=== PATIENT | female | born 1955 | race African-American/Black ===

== ENCOUNTER 2016-06-01 06:15 | Inpatient (IN) | payer OTHER ==
--- NOTE | 2016-06-01 06:28 | PDOC ---
History of Present Illness <Olga Bermudez - Last Filed: 06/01/16 08:52> - General History Source: Patient Exam Limitations: No Limitations - History of Present Illness Initial Comments: 06/01/16 06:29 The patient is a 60-year-old female, with no significant past medical history, who presents to the emergency department with intermittent "dizziness" for the past week. She describes the dizziness as "a feeling of lightheadedness, like she might pass out." She states that she had one or 2 episodes of this dizziness last week. The episodes were acute onset, gradual offset, lasting approximately 10-15 minutes. There were no accompanying symptoms. Yesterday she had another, similar, single episode. She awoke this morning approximately one hour ago, with this same "dizziness." She reports near loss of consciousness this morning, but denies actual loss of consciousness. She denies dyspnea, dyspnea on exertion, chest pain, back pain. She denies palpitations. She denies alcohol use, recreational drug use. The patient denies recent travel/surgeries/immobility, lower extremity edema, calf pain or tenderness, tobacco use, hormone use, personal or family history of thrombosis. She denies fever, chills, sweats. She denies any previous history of arrhythmia. She denies any history of thyroid disease. She denies recent heat intolerance, inadvertent weight loss, hair loss, hyperdefecation. 06/01/16 06:53 06/01/16 06:59 <Ariel Miranda - Last Filed: 06/01/16 10:02> - General Stated Complaint: LIGHTHEADED Time Seen by Provider: 06/01/16 06:28 Past History <Olga Bermudez - Last Filed: 06/01/16 08:52> - Psycho/Social/Smoking Cessation Hx Anxiety: No Suicidal Ideation: No Smoking History: Never smoked <Ariel Miranda - Last Filed: 06/01/16 10:02> - Past Medical History Allergies/Adverse Reactions: Allergies Allergy/AdvReac Type Severity Reaction Status Date / Time Iodinated Contrast Media - Allergy Verified 06/01/16 06:34 Oral and iodine Allergy Verified 11/02/14 07:22 Home Medications: Ambulatory Orders NK [No Known Home Medication] 11/02/14 Review of Systems - Review of Systems Comments:: 06/01/16 06:55 CONSTITUTIONAL: Absent: fever, chills, diaphoresis, generalized weakness, malaise, loss of appetite HEENT: Absent: rhinorrhea, nasal congestion, throat pain, throat swelling, difficulty swallowing, mouth swelling, ear pain, eye pain, visual Changes CARDIOVASCULAR: Absent: chest pain, loss of consciousness, palpitations, irregular heart rate, peripheral edema RESPIRATORY: Absent: cough, shortness of breath, dyspnea with exertion, orthopnea, wheezing, stridor, hemoptysis GASTROINTESTINAL: Absent: abdominal pain, abdominal distension, nausea, vomiting, diarrhea, constipation, melena, hematochezia GENITOURINARY: Absent: dysuria, frequency, urgency, hesitancy, hematuria, flank pain, genital pain MUSCULOSKELETAL: Absent: myalgia, arthralgia, joint swelling SKIN: Absent: rash, itching, pallor HEMATOLOGIC/IMMUNOLOGIC: Absent: easy bleeding, easy bruising, lymphadenopathy, frequent infections ENDOCRINE: Absent: unexplained weight gain, unexplained weight loss, heat intolerance, cold intolerance NEUROLOGIC: Present: See history of present illness Absent: headache, focal weakness or paresthesias, unsteady gait, seizure, mental status changes, bladder or bowel incontinence PSYCHIATRIC: Absent: anxiety, depression, suicidal or homicidal ideation, hallucinations. <Ariel Miranda - Last Filed: 06/01/16 10:02> *Physical Exam - Vital Signs Last Vital Signs Temp Pulse Resp BP Pulse Ox 98.5 F 117 H 18 124/104 100 06/01/16 06:35 06/01/16 07:12 06/01/16 06:35 06/01/16 07:12 06/01/16 06:35 <Olga Bermudez - Last Filed: 06/01/16 08:52> Heart Score/ECG Review - ECG Intrepretation Comment:: 06/01/16 06:42 Indeterminant rhythm at approximately 140 bpm, normal axis, normal intervals, no ST changes The complexes are narrow. The heart are interval is variable. There are frequent T waves. The MN interval is fixed. There are occasional possible flutter waves present in some leads 06/01/16 06:51 <Ariel Miranda - Last Filed: 06/01/16 10:02> ED Treatment Course - LABORATORY CBC & Chemistry Diagram: 06/01/16 06:47 06/01/16 06:47 - ADDITIONAL ORDERS Additional order review: Laboratory Results 06/01/16 06/01/16 06:47 06:47 INR 1.24 H PTT (Actin FS) 33.0 Sodium 134 L Potassium 4.3 Chloride 99 Carbon Dioxide 24 Anion Gap 11 BUN 19 H Creatinine 1.0 Creat Clearance w eGFR 56.18 Random Glucose 72 L Calcium 9.4 Magnesium 2.0 Total Bilirubin 0.4 AST 19 ALT 21 Alkaline Phosphatase 73 Creatine Kinase 117 Troponin I < 0.02 Total Protein 9.6 H Albumin 3.9 TSH 6.74 H Free T4 1.17 06/01/16 06:47 RBC 4.72 MCV 77.4 L MCHC 32.6 RDW 14.0 MPV 9.0 Neutrophils % 41.6 L Lymphocytes % 37.5 Monocytes % 16.3 H Eosinophils % 3.7 Basophils % 0.9 - RADIOLOGY Radiograph Interpretation: 06/01/16 08:52 Chest XR Portable Reviewed by: Dr. Ariel Miranda Interpreted by: Dr. Ariel Costa IMPRESSION: No acute pathology. No significant changes since 11/02/2014. - Medications Given in the ED: ED Medications Discontinued Medications Generic Name Dose Route Start Last Admin Trade Name Freq PRN Reason Stop Dose Admin Aspirin 162 mg 06/01/16 06:40 06/01/16 07:01 Asa - PO 06/01/16 06:41 162 mg ONCE ONE Administration Diltiazem HCl 20 mg 06/01/16 06:40 06/01/16 06:57 Cardizem Injection - IVPUSH 06/01/16 06:41 20 mg ONCE ONE Administration Sodium Chloride 1,000 mls @ 1,000 mls/hr 06/01/16 06:40 06/01/16 06:55 Normal Saline - IV 06/01/16 07:39 1,000 mls/hr ASDIR STA Administration <Olga Bermudez - Last Filed: 06/01/16 08:52> - LABORATORY CBC & Chemistry Diagram: 06/01/16 06:47 06/01/16 06:47 <Ariel Miranda - Last Filed: 06/01/16 10:02> Medical Decision Making - Critical Care Time Total Critical Care Time (minutes): 45 Critical Care Statement: The care of this patient involved high complexity decision making to prevent further life threatening deterioration of the patient 's condition and/or to evalute & treat vital organ system(s) failure or risk of failure. - Medical Decision Making 06/01/16 06:52 The patient is well-appearing and in no acute distress She is tachycardic, in the 160s to 180s overall She has periods of sinus tachycardia as well a periods of a narrow complex, regular tachycardia, of indeterminant and rhythm I suspect possible intermittent atrial flutter with fixed block versus intermittent atrial tachycardia Blood pressure is within normal limits Will administer IV diltiazem while running a rhythm strip, to better disclose the underlying rhythm 06/01/16 06:59 After receiving 20 mg of IV Cardizem, she remains tachycardic, with a similar rhythm Heart rate is now averaging in the 120s, significantly improved from presentation where it was averaging in the 160s to 180s Repeat EKG: There are periods of sinus tachycardia, with interspersed periods of a narrow complex tachycardia, which is regular, but of undetermined rhythm I continue to suspect intermittent atrial flutter with fixed block, versus intermittent atrial tachycardia 06/01/16 07:02 Heart rate now in the low 110s Will begin Cardizem drip Will administer IV fluids, normal saline, 1 L bolus 06/01/16 07:26 Heart rate now in 90s to low 100s Chest x-ray emergency Department interpretation: No acute cardiopulmonary disease Labs pending 06/01/16 07:43 Heart rate is ranging from 90-160 Will increase Cardizem to 7.5 mg per hour 06/01/16 07:58 Rhythm on the monitor seems to be variable: There are periods consistent with sinus tachycardia, where I see clear P waves with a fixed MN interval and a fixed RR intervals There are also periods of narrow complex, regularly tachycardia Occasionally, during these periods, there are possible flutter waves seen Given the new onset tachycardia of unclear etiology, pulmonary embolism is in the differential diagnosis She is low risk for pulmonary embolism based on a Wells score of 1.5 Will obtain d-dimer Clinical impression: Narrow complex tachycardia of unclear etiology Suspected intermittent atrial flutter Possible hypothyroidism Case discussed in detail with admitting provider including history, physical exam and ancillary studies. Admitting physician has assumed care for the patient, will follow all pending diagnostics and will complete the evaluation and treatment. A portion of this note was documented by scribe services under my direction. I have reviewed the details of the note, within reason, and agree with the documentation with the following case summary and management plan written by me. 06/01/16 08:00 06/01/16 08:24 06/01/16 09:43 D-dimer noted, less than 200 Even her low pretest probability, I feel that a diagnosis of pulmonary embolism would be extremely unlikely Normal free T4 noted Her TSH abnormality could potentially be secondary to sick euthyroid syndrome secondary to the systemic stress of her tachyarrhythmia 06/01/16 09:44 06/01/16 10:01 <Ariel Miranda - Last Filed: 06/01/16 10:02> *DC/Admit/Observation/Transfer <Olga Bermudez - Last Filed: 06/01/16 08:52> - Discharge Dispostion Admit: Yes <Ariel Miranda - Last Filed: 06/01/16 10:02> Diagnosis at time of Disposition: Tachycardia
[2016-06-01 06:36] VITALS: TEMP 98.5; BMI 22.2
[2016-06-01] MEDS ORDERED: SODIUM CHLORIDE 1,000 ML IV STA (06:40)
[2016-06-01] MEDS ORDERED: ASPIRIN 81 MG CHEWABLE TABLETS PO ONE (06:40)
[2016-06-01] MEDS ORDERED: dilTIAZem HCL 50 MG/10 ML - 10 ML VIAL IVPUSH ONE (06:40)
[2016-06-01] MEDS ORDERED: dilTIAZem HCL 125 MG/25 ML - 25 ML VIAL ONE (06:47)
[2016-06-01] MEDS ORDERED: ASPIRIN 81 MG CHEWABLE TABLETS ONE (06:58)
[2016-06-01] MEDS ORDERED: dilTIAZem HCL 50 MG/10 ML - 10 ML VIAL ONE (07:06)
[2016-06-01] MEDS ORDERED: DILTIAZEM INJECTION 125 MG in DEXTROSE 5%-WATER - 100 ML IVPB SCH (07:15)
[2016-06-01 07:16] LABS: BASOPHIL 0.9 % (0-2.0); EOSINOPHIL 3.7 % (0-4.5); MCH 25.2 pg (25.7-33.7); MCHC 32.6 g/dl (32.0-36.0); MEAN CELL VOLUME 77.4 fl (80-96); NEUTROPHILS 41.6 % (42.8-82.8); PLATELET COUNT 348 K/MM3 (134-434); WHITE BLOOD COUNT 5.9 K/mm3 (4.0-10.0)
[2016-06-01 07:31] LABS: INR 1.24 (0.82-1.09); PROTHROMBIN TIME (PATIENT) 13.7 SEC (9.98-11.88)
[2016-06-01 07:41] LABS: ALBUMIN 3.9 g/dl (3.4-5.0); ANION GAP 11 (8-16); BILIRUBIN,TOTAL 0.4 mg/dL (0.2-1.0); CALCIUM 9.4 mg/dL (8.5-10.1); CO2 24 mmol/L (21-32); GLUCOSE,RANDOM 72 mg/dL (74-106); SGOT/AST 19 U/L (15-37); SGPT/ALT 21 U/L (12-78); TOT PROT 9.6 g/dl (6.4-8.2)
[2016-06-01 07:50] LABS: ALK PHOS 73 U/L (45-117); THYROID STIMULATING HORMONE 6.74 uIU/ml (0.358-3.74); TROPONIN I < 0.02 ng/ml (0.00-0.05)
[2016-06-01] MEDS ORDERED: HEPARIN NA (PORCINE) 5,000 UNITS/ML 1ML VIAL IVPUSH PRN ×2 (08:40)
[2016-06-01] MEDS ORDERED: HEPARIN - 25,000 UNIT in SODIUM CHLORIDE 495 ML IV SCH (08:45)
[2016-06-01 08:48] LABS: FREE T4 1.17 ng/dl (0.76-1.46)
--- NOTE | 2016-06-01 08:54 | PN ---
Teaching Attending Note Name of Resident: Ivet Mahoney ATTENDING PHYSICIAN STATEMENT I saw and evaluated the patient. I reviewed the resident's note and discussed the case with the resident. I agree with the resident's findings and plan as documented. CC: light headedness SUBJECTIVE: 60 y/o nice lady with no significant PMH and no medical follow up due to lack of insurance. She presented this am with light headedness and near syncope. around 5 am , she woke up, felt light headed while standing , did not have LOC , but lowered her self to the floor , and episode of LH resolved in < 1 min. yesterday she had a similar episode, and one more one week ago while eating . no warning signs but feels weird sensation in her nose during that time. denies any SOB, palpitations, sweating, CP with previous episodes. This am in ER she developed intermittent palpitations . denies recent travel, hospitalizations, or immobilization. denies Dysuria, cough , diarrhea or Abd pain . NO fever or chills . denies any h/o GI bleed OBJECTIVE: VS reviewed. NAD , very pleasant , AAOx3 HEENT: MMM, no facial droop, tongue at mid line , EOMI, round equal pupils reactive to light . Thyroid not enlarged, and nodules felt CV: RRR, no MRG . no JVD, no carotid bruits. Lungs : CTAB Abd :Soft, NT, ND , NL BS Ext : no edema , no erythema or tremor skin no rash NEuro : no facial droop, tongue at mid line , EOMI, round equal pupils reactive to light , nl facial sensation . NL sensatio to light touch all over . strength 5/5 in upper and lower ext proximally and distally ASSESSMENT AND PLAN: 60 y/o nice lady with no significant PMH and no medical follow up due to lack of insurance. She presented this am with light headedness and near syncope. SHe was found to have tachycarrhythmias in ER and was placed on cardizem gtt. 1- Tachycardia: EKG and strips reviewed. alternating sinus rhythm with SVT . no ST or T wave changes. No signs of infection , no evidence of hyperthyroidism. no risk factors for PE . ACS is unlikely - check echo - repeat trop x1 - continue cardisem gtt . - will introduce po short acting cardizem , to help taper gtt off - Cardiac c/s. case d/w Dr. Elias, help appreciated - tele monitoring and cardiac c/s - PE is unlikely, clinical suspicion is low. WELLS score 1.5. D dimer was ordered in ER, if Neg then no further work up 2- elevated TSH. no enlargement in thyroid gland. follow FT3, FT4. might be subclinical hypothyroidism 3- Dispo : HLOC
[2016-06-01] MEDS ORDERED: HEPARIN INFUSION - 500 ML IVPB ONE (09:00)
--- NOTE | 2016-06-01 09:45 | EKG ---
Test Reason : Blood Pressure : / mmHG Vent. Rate : 143 BPM Atrial Rate : 170 BPM P-R Int : 000 ms QRS Dur : 072 ms QT Int : 270 ms P-R-T Axes : 047 001 033 degrees QTc Int : 416 ms SUPRAVENTRICULAR TACHYCARDIA with SINUS TACHYCARDIA WITH FUSION COMPLEXES NONSPECIFIC ST AND T WAVE ABNORMALITY ABNORMAL ECG NO PREVIOUS ECGS AVAILABLE Confirmed by LISA QUIGLEY MD ([id number]) on 06/01/2016 9:44:25 AM Referred By: Confirmed By:LISA QUIGLEY MD
--- NOTE | 2016-06-01 09:46 | EKG ---
Test Reason : Blood Pressure : / mmHG Vent. Rate : 122 BPM Atrial Rate : 122 BPM P-R Int : 132 ms QRS Dur : 082 ms QT Int : 344 ms P-R-T Axes : 068 001 052 degrees QTc Int : 490 ms SINUS TACHYCARDIA PREMATURE ATRIAL COMPLEXES POSSIBLE LEFT ATRIAL ENLARGEMENT BORDERLINE ECG Confirmed by LISA QUIGLEY MD ([id number]) on 06/01/2016 9:45:41 AM Referred By: Confirmed By:LISA QUIGLEY MD
--- NOTE | 2016-06-01 09:49 | EKG ---
Test Reason : Blood Pressure : / mmHG Vent. Rate : 144 BPM Atrial Rate : 119 BPM P-R Int : 136 ms QRS Dur : 082 ms QT Int : 346 ms P-R-T Axes : 067 008 045 degrees QTc Int : 535 ms SINUS TACHYCARDIA with intermittent SVT as well POSSIBLE LEFT ATRIAL ENLARGEMENT ABNORMAL ECG Confirmed by LISA QUIGLEY MD ([id number]) on 06/01/2016 9:48:47 AM Referred By: Confirmed By:LISA QUIGLEY MD
[2016-06-01 10:15] LABS: URINE MARIJUANA THC NEGATIVE ng/ml (CUTOFF=50)
--- NOTE | 2016-06-01 10:26 | CON.CARD ---
Cardiology Consult (text) - Consultation Consultation Note: cc: lightheadedness hpi: 60 f no sig pmhx here with lightheadedness. Pt has no hx hrt dz, chf, cad , cva/tia, htn, dm. Past few days she has had several episodes of LH. Occurs with sitting or standing. Today she got up to look at snow though window and began to feel LH. She laid back down until it passed and decided to come to ER due to recurrence of this symptom a few times over past week. LH is mild, sensation of about to faint, brief, and not associated with other sxs, not worsened by position. No cp, sob, palps, loc, pnd, orthopnea, le edema. In ER found to have intermittent episodes of svt and started on dilt gtt. pmh: per hpi psh: social: no tob, drugs fam: no hx hrt dz or scd ros: per hpi; no cough, fever, nvd, riggs, vision changes, wt loss, muscle pain, rash, nasal congestion, hematuria, gib meds: none taken pe: Vital Signs Period Temp Pulse Resp BP Sys/Bhakta Pulse Ox Last 24 Hr 98.5 F 112-117 18-18 115-127/61-104 100-100 nad no jvd irreg, tachy, s1s2 no mrg cta bl nl eff aaox3 no le e/c/c abd nt nd pos bs pos pt dp no carotid bruit no jaundice diaphoresis Laboratory Last Values WBC 5.9 K/mm3 (4.0-10.0) 06/01/16 06:47 RBC 4.72 M/mm3 (3.60-5.2) 06/01/16 06:47 Hgb 11.9 GM/dL (10.7-15.3) 06/01/16 06:47 Hct 36.5 % (32.4-45.2) 06/01/16 06:47 MCV 77.4 fl (80-96) L 06/01/16 06:47 MCHC 32.6 g/dl (32.0-36.0) 06/01/16 06:47 RDW 14.0 % (11.6-15.6) 06/01/16 06:47 Plt Count 348 K/MM3 (134-434) 06/01/16 06:47 MPV 9.0 fl (7.5-11.1) 06/01/16 06:47 Neutrophils % 41.6 % (42.8-82.8) L 06/01/16 06:47 Lymphocytes % 37.5 % (8-40) 06/01/16 06:47 Monocytes % 16.3 % (3.8-10.2) H 06/01/16 06:47 Eosinophils % 3.7 % (0-4.5) 06/01/16 06:47 Basophils % 0.9 % (0-2.0) 06/01/16 06:47 INR 1.24 (0.82-1.09) H 06/01/16 06:47 PTT (Actin FS) 33.0 SECONDS (26.9-34.4) 06/01/16 06:47 D-Dimer < 200 ng/ml (<200-235) 06/01/16 07:58 Sodium 134 mmol/L (136-145) L 06/01/16 06:47 Potassium 4.3 mmol/L (3.5-5.1) 06/01/16 06:47 Chloride 99 mmol/L (98-107) 06/01/16 06:47 Carbon Dioxide 24 mmol/L (21-32) 06/01/16 06:47 Anion Gap 11 (8-16) 06/01/16 06:47 BUN 19 mg/dL (7-18) H 06/01/16 06:47 Creatinine 1.0 mg/dL (0.55-1.02) 06/01/16 06:47 Creat Clearance w eGFR 56.18 (>60) 06/01/16 06:47 Random Glucose 72 mg/dL (74-106) L 06/01/16 06:47 Calcium 9.4 mg/dL (8.5-10.1) 06/01/16 06:47 Magnesium 2.0 mg/dL (1.8-2.4) 06/01/16 06:47 Total Bilirubin 0.4 mg/dL (0.2-1.0) 06/01/16 06:47 AST 19 U/L (15-37) 06/01/16 06:47 ALT 21 U/L (12-78) 06/01/16 06:47 Alkaline Phosphatase 73 U/L (45-117) 06/01/16 06:47 Creatine Kinase 117 IU/L (26-192) 06/01/16 06:47 Troponin I < 0.02 ng/ml (0.00-0.05) 06/01/16 06:47 Total Protein 9.6 g/dl (6.4-8.2) H 06/01/16 06:47 Albumin 3.9 g/dl (3.4-5.0) 02 06:47 TSH 6.74 uIU/ml (0.358-3.74) H 06/01/16 06:47 Free T4 1.17 ng/dl (0.76-1.46) 06/01/16 06:47 Opiates Screen Negative ng/ml (DEPHGZ=916) 06/01/16 09:50 Methadone Screen Negative ng/ml (MVQLXZ=016) 06/01/16 09:50 Barbiturate Screen Negative ng/ml (EEBEKW=699) 06/01/16 09:50 Phencyclidine Screen Negative ng/ml (CUTOFF=25) 06/01/16 09:50 Ur Amphetamines Screen Negative ng/ml (XFLJLL=398) 06/01/16 09:50 MDMA (Ecstasy) Screen Negative ng/ml (KSZVJL=846) 06/01/16 09:50 Benzodiazepines Screen Negative ng/ml (PGVIFA=063) 06/01/16 09:50 Cocaine Screen Negative ng/ml (RIAUUL=156) 06/01/16 09:50 U Marijuana (THC) Screen Negative ng/ml (CUTOFF=50) 06/01/16 09:50 ecgs and rhythm strips from 06/01/16 reviewed: sr with episodes of svt, likely PAT, nl qtc, no ischemic changes cxr: clear lungs a/p: 60 f no sig pmhx here with lightheadedness. presyncope, svt: -ecg and rhythm strips appear to show sr with intermittent episodes of svt, likely PAT -current tracings do not seem to indicate aflutter or afib so no need for AC at this time (chadsvasc is 1 based only on female gender so would not be indication for AC regardless) -would monitor on tele to further observe the rhythm -currently on dilt gtt, will start po dilt with plan to titrate off gtt -tsh slightly high, not hyperthyroid -d-dimer low, no suggestion of PE -check echo
[2016-06-01] MEDS ORDERED: dilTIAZem HCL 30 MG TABLET (FP) ONE ×4 (10:45→22:25)
[2016-06-01] MEDS: dilTIAZem HCL 30 MG TABLET (FP) PO SCH ×4 (10:52→22:31)
--- NOTE | 2016-06-01 12:44 | HP ---
CHIEF COMPLAINT: felt lightheaded at home PCP: none HISTORY OF PRESENT ILLNESS: 60 yr old woman with no medical follow-up presented after episode of lightheadedness early this morning. She woke up around 5am and walked to her window, she looked out and quickly turned her head and she felt "funny," felt as if she was close to passing out. She brought her self to the floor and within few minutes she felt better. She was brought to ED by daughter in personal vehicle for further evaluation. Had previous episode last week with feeling for lightheadedness that lasted few minutes and self-resolved during a meal. Has not been eating well for past few days, mostly applesauce due to difficulty chewing. She has good appetite. Denies chest pain, palpitations, LOC, trauma, SOB, loss of muscle tone, no recent illness, no sick contacts. No uptodate on screens since to PCP. ER course was notable for: (1) tachyarrhythmia (2) cardizem drip (3) heparin drip Recent Travel: none PAST MEDICAL HISTORY: none, only hospitalizations were deliveries , [facility] ED [facility] 11/02/2014 for "numbness of lip," labs, vitals wnl at that time was d/c'ed from ED, physician impression for beginning of viral syndrome. 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 3 adult children are healthy. Allergies Iodinated Contrast Media - Oral and Allergy (Verified 06/01/16 06:34) iodine Allergy (Verified 11/02/14 07:22) HOME MEDICATIONS: no home medications, no supplements, no herbal teas Home Medications Medication Instructions Recorded NK [No Known Home Medication] 11/02/14 REVIEW OF SYSTEMS CONSTITUTIONAL: Absent: fever, chills, diaphoresis, generalized weakness, malaise, loss of appetite, weight change HEENT: Absent: rhinorrhea, nasal congestion, throat pain, throat swelling, difficulty swallowing, mouth swelling, ear pain, eye pain, visual changes CARDIOVASCULAR: Present:lightheadedness, Absent: chest pain, syncope, palpitations, irregular heart rate, peripheral edema RESPIRATORY: Absent: cough, shortness of breath, dyspnea with exertion, orthopnea, wheezing, stridor, hemoptysis GASTROINTESTINAL: Absent: abdominal pain, abdominal distension, nausea, vomiting, diarrhea, constipation, melena, hematochezia GENITOURINARY: Absent: dysuria, frequency, urgency, hesitancy, hematuria, flank pain, genital pain MUSCULOSKELETAL: Absent: myalgia, arthralgia, joint swelling, back pain, neck pain SKIN: Absent: rash, itching, pallor HEMATOLOGIC/IMMUNOLOGIC: Absent: easy bleeding, easy bruising, lymphadenopathy, frequent infections ENDOCRINE: Absent: unexplained weight gain, unexplained weight loss, heat intolerance, cold intolerance NEUROLOGIC: Absent: headache, focal weakness or paresthesias, dizziness, unsteady gait, seizure, mental status changes, bladder or bowel incontinence PSYCHIATRIC: Absent: anxiety, depression, suicidal or homicidal ideation, hallucinations. PHYSICAL EXAMINATION Vital Signs - 24 hr 06/01/16 06/01/16 07:12 10:10 Pulse Rate 117 H Pulse Rate [ 112 H Radial] Respiratory 18 Rate Blood Pressure 124/104 Blood Pressure 115/61 [Left Arm] O2 Sat by Pulse 100 Oximetry (%) GENERAL: Thin appearing, Awake, alert, and fully oriented, in no acute distress. HEAD: Normal with no signs of trauma. no facial asymmetry. EYES: Pupils equal, round and reactive to light, extraocular movements intact, sclera anicteric, conjunctiva clear. No lid lag. poor dental hygiene with multiple teeth missing. EARS, NOSE, THROAT: Ears normal, nares patent, oropharynx clear without exudates. Moist mucous membranes. no thyromegaly, no LAD. NECK: Normal range of motion, supple without lymphadenopathy, JVD, or masses. no carotid bruits LUNGS: Breath sounds equal, clear to auscultation bilaterally. No wheezes, and no crackles. No accessory muscle use. HEART: irregular rhythm, tachycardic, normal S1 and S2 without murmur, rub or gallop. ABDOMEN: Soft, nontender, not distended, normoactive bowel sounds, no guarding, no rebound, no masses. No hepatomegaly or splenomegaly. MUSCULOSKELETAL: Normal range of motion at all joints. No bony deformities or tenderness. No CVA tenderness. normal muscle tone. UPPER EXTREMITIES: 2+ pulses, warm, well-perfused. No cyanosis. No clubbing. Cap refill <2 seconds. No peripheral edema. LOWER EXTREMITIES: 2+ pulses, warm, well-perfused. No calf tenderness. No peripheral edema. NEUROLOGICAL: Cranial nerves II-XII intact. Normal speech. Normal gait. 5/5 strength throughout. sensation intact throughout. no tremors. PSYCHIATRIC: Cooperative. Good eye contact. Appropriate mood and affect. SKIN: Warm, dry, normal turgor, no rashes or lesions noted. Laboratory Results - last 24 hr 06/01/16 06/01/16 07:58 09:50 D-Dimer < 200 Opiates Screen Negative Methadone Screen Negative Barbiturate Screen Negative Phencyclidine Screen Negative Ur Amphetamines Screen Negative MDMA (Ecstasy) Screen Negative Benzodiazepines Screen Negative Cocaine Screen Negative U Marijuana (THC) Screen Negative Active Medications Diltiazem HCl (Cardizem -) 30 mg PO QID JONO Last Admin: 06/01/16 18:36 Dose: 30 mg ASSESSMENT/PLAN: 60 yr old woman with no medical follow-up presents with 2 episodes of lightheadedness, found to have tachyarrhythmia in ED admitted to [facility] for further evaluation. - patient has not received routine screening, will do HBA1c - declined breast exam #Tachycardia - cardizem 30mg po qid - s/p cardizem drip, improved rate - echo pending - Dr. Elias consulted for cardiology - CHADVASC score of 1(sex), no anticoagulation at this time - Ddimer <200, low suspicion for PE - chest xray clear, no leucocytosis, unlikely to be pulmonary infection, no cardiomegaly - EKg with acute ischemic changes, unlikely to be ACS, trend trops neg x2 #Elevated TSH - normal free T4, pending T3 - hyperthyroidism vs reactive to acute event, will require repeat post discharge #DVT: hep TID Diet: soft due to difficulty chewing, applesauce x2 as per patient request Visit type - Emergency Visit Emergency Visit: Yes ED Registration Date: 06/01/16 Care time: The patient presented to the Emergency Department on the above date and was hospitalized for further evaluation of their emergent condition. - New Patient This patient is new to me today: Yes Date on this admission: 06/01/16 - Critical Care Critical Care patient: No
[2016-06-01] MEDS ORDERED: HEPARIN NA (PORCINE) 5,000 UNITS/ML 1ML VIAL ONE (22:25)
[2016-06-01] MEDS: HEPARIN NA (PORCINE) 5,000 UNITS/ML 1ML VIAL SQ SCH (22:31)
[2016-06-02 01:41] LABS: TROPONIN I < 0.02 ng/ml (0.00-0.05)
[2016-06-02] MEDS: HEPARIN NA (PORCINE) 5,000 UNITS/ML 1ML VIAL SQ SCH ×2 (05:57→14:42)
[2016-06-02 07:34] LABS: CALCIUM 9.1 mg/dL (8.5-10.1); CREATININE 0.8 mg/dL (0.55-1.02)
--- NOTE | 2016-06-02 08:37 | PN ---
Physical Exam: SUBJECTIVE: Patient seen and examined feeling well. mild ache in left lower leg. slept okay last night. ambulated to bathroom without difficulty, did not have a bowel movement yet. Had full meal last night. denies chest pain, lightheadedness, sob. OBJECTIVE: Vital Signs Period Temp Pulse Resp BP Sys/Bhakta Pulse Ox Last 24 Hr 84-112 18-18 102-120/61-90 100-100 GENERAL: thin appearing, The patient is awake, alert, and fully oriented, in no acute distress. HEAD: Normal with no signs of trauma. EYES: PERRL, extraocular movements intact, sclera anicteric, conjunctiva clear. No ptosis. ENT: Ears normal, nares patent, oropharynx clear without exudates, moist mucous membranes. NECK: Trachea midline, full range of motion, supple. LUNGS: Breath sounds equal, clear to auscultation bilaterally, no wheezes, no crackles, no accessory muscle use. HEART: Regular rate and rhythm, S1, S2 without murmur, rub or gallop. ABDOMEN: Soft, nontender, nondistended, normoactive bowel sounds, no guarding, no rebound, no hepatosplenomegaly, no masses. EXTREMITIES: 2+ pulses, warm, well-perfused, no edema. NEUROLOGICAL: Cranial nerves II through XII grossly intact. Normal speech, gait not observed. PSYCH: Normal mood, normal affect. SKIN: Warm, dry, normal turgor, no rashes or lesions noted Laboratory Results - last 24 hr 06/01/16 06/01/16 06/01/16 07:58 09:50 10:05 D-Dimer < 200 Sodium Potassium Chloride Carbon Dioxide Anion Gap BUN Creatinine Random Glucose Calcium Creatine Kinase CK-MB (CK-2) Troponin I Free T3 2.1 Opiates Screen Negative Methadone Screen Negative Barbiturate Screen Negative Phencyclidine Screen Negative Ur Amphetamines Screen Negative MDMA (Ecstasy) Screen Negative Benzodiazepines Screen Negative Cocaine Screen Negative U Marijuana (THC) Screen Negative 06/01/16 06/02/16 06/02/16 14:31 00:01 06:10 D-Dimer Sodium 137 Potassium 4.3 Chloride 103 Carbon Dioxide 20 L Anion Gap 14 BUN 12 D Creatinine 0.8 Random Glucose 60 L Calcium 9.1 Creatine Kinase 160 D CK-MB (CK-2) 2.403 Troponin I < 0.02 < 0.02 Free T3 Opiates Screen Methadone Screen Barbiturate Screen Phencyclidine Screen Ur Amphetamines Screen MDMA (Ecstasy) Screen Benzodiazepines Screen Cocaine Screen U Marijuana (THC) Screen Active Medications Generic Name Dose Route Start Last Admin Trade Name Freq PRN Reason Stop Dose Admin Diltiazem HCl 30 mg 06/01/16 10:13 06/01/16 22:31 Cardizem - PO 30 mg QID JONO Administration Heparin Sodium (Porcine) 5,000 unit 06/01/16 22:00 06/02/16 05:57 Heparin - SQ 5,000 unit TID JONO Administration ASSESSMENT/PLAN: 60 yr old woman with no medical follow-up presents with 2 episodes of lightheadedness, found to have tachyarrhythmia in ED admitted to [facility] for further evaluation. -HA1c 5.9 #Tachycardia - improved - cardizem 120mg po qd - echo normal - Dr. Elias consulted for cardiology - CHADVASC score of 1(sex), no anticoagulation at this time - Ddimer <200, low suspicion for PE - chest xray clear, no leucocytosis, unlikely to be pulmonary infection, no cardiomegaly - EKg without acute ischemic changes, unlikely to be ACS, trend trops neg x3 #Elevated TSH - normal free T4, normal T3 - hypothyroidism vs reactive to acute event, will require repeat post discharge #DVT: hep TID Diet: soft due to difficulty chewing, applesauce x2 as per patient request Visit type - Emergency Visit Emergency Visit: No - New Patient This patient is new to me today: No - Critical Care Critical Care patient: No - Discharge Referral Referred to [facility] Med P.C.: No
[2016-06-02] MEDS ORDERED: dilTIAZem HCL 60 MG TABLET (FP) ONE (09:36)
--- NOTE | 2016-06-02 11:20 | PN ---
Progress Note (short form) - Note Progress Note: s: no cp sob palps dizzy; feels better, wants to go home o: Vital Signs Period Temp Pulse Resp BP Sys/Bhakta Pulse Ox Last 24 Hr 78-86 18-18 102-151/59-90 97-100 nad no jvd rrr, s1s2 no mrg cta bl nl eff aaox3 no le e/c/c abd nt nd pos bs no jaundice diaphoresis Current Medications Generic Name Dose Route Start Last Admin Trade Name Bo PRN Reason Stop Dose Admin Diltiazem HCl 120 mg 06/02/16 10:00 06/02/16 09:54 Cardizem Cd - PO 120 mg DAILY JONO Administration Heparin Sodium (Porcine) 5,000 unit 06/01/16 22:00 06/02/16 05:57 Heparin - SQ 5,000 unit TID JONO Administration CBC, BMP 06/01/16 06:47 06/02/16 06:10 ecgs and rhythm strips from 06/01/16 reviewed: sr with episodes of svt, likely PAT, nl qtc, no ischemic changes cxr: clear lungs tele: sr, brief atrial runs echo 05/2016: nl lv/rv, no sig valve path a/p: 60 f no sig pmhx here with lightheadedness. presyncope, svt: -ecg, rhythm strips, tele appear to show sr with intermittent episodes of svt, likely PAT -current tracings do not show aflutter or afib so no need for AC at this time ( chadsvasc is 1 based only on female gender so would not be indication for AC regardless) -tsh slightly high, not hyperthyroid -d-dimer low, no suggestion of PE -echo unremarkable -initially on dilt gtt, now on po dilt 30 qid. -overnight tele shows brief a-tach but no long runs as she was having yesterday on presentation. will change to long acting dilt 120 qd for this AM dose and if tele remains benign can dc later this afternoon from cardiac pov. Should have outpt cardio f/u.
--- NOTE | 2016-06-02 12:21 | PN ---
Teaching Attending Note Name of Resident: Ivet Mahoney ATTENDING PHYSICIAN STATEMENT I saw and evaluated the patient. I reviewed the resident's note and discussed the case with the resident. I agree with the resident's findings and plan as documented. SUBJECTIVE: no palpitations , no cp , no light headedness episodes. OBJECTIVE: NAD , very pleasant , AAOx3 HEENT: MMM, no facial droop, CV: RRR, no MRG . no JVD, no carotid bruits. Lungs : CTAB Ext : no edema , no erythema or tremor ASSESSMENT AND PLAN: 60 y/o nice lady with no significant PMH and no medical follow up due to lack of insurance. She presented this am with light headedness and near syncope. SHe was found to have tachycarrhythmias in ER and was placed on cardizem gtt. 1- Sinus tachycardia with episodes of SVT. HR improved, some episodes of tachy seen on tele but no sustained tachycardia - started on cardizem CD today, will monitor HR on that . BP tolerated CCB - Echo reviewed. - no need for AC 2- Elevated TSH: nl FT4, FT. likely subclinical hypothyroidism . need to repeat TSH as out p tin few weeks dispo : if HR remains controlled , can dc this afternoon
[2016-06-02] MEDS ORDERED: HEPARIN NA (PORCINE) 5,000 UNITS/ML 1ML VIAL ONE (14:20)
--- NOTE | 2016-06-02 17:25 | DS ---
Physical Exam: SUBJECTIVE: Patient seen and examined. no complaints, tachycardia improved, stable for discharge and follow-up as outpatient. OBJECTIVE: PHYSICAL EXAM GENERAL: The patient is awake, alert, and fully oriented, in no acute distress. HEAD: Normal with no signs of trauma. EYES: PERRL, extraocular movements intact, sclera anicteric, conjunctiva clear. ENT: Ears normal, nares patent, oropharynx clear without exudates, moist mucous membranes. NECK: Trachea midline, full range of motion, supple. LUNGS: Breath sounds equal, clear to auscultation bilaterally, no wheezes, no crackles, no accessory muscle use. HEART: Regular rate and rhythm, S1, S2 without murmur, rub or gallop. ABDOMEN: Soft, nontender, nondistended, normoactive bowel sounds, no guarding, no rebound, no hepatosplenomegaly, no masses. EXTREMITIES: 2+ pulses, warm, well-perfused, no edema. NEUROLOGICAL: Cranial nerves II through XII grossly intact. Normal speech, gait not observed. PSYCH: Normal mood, normal affect. SKIN: Warm, dry, normal turgor, no rashes or lesions noted. LABS Laboratory Tests 06/01/16 06/01/16 06/01/16 06:47 06:47 06:47 WBC 5.9 RBC 4.72 Hgb 11.9 Hct 36.5 MCV 77.4 L MCHC 32.6 RDW 14.0 Plt Count 348 MPV 9.0 Neutrophils % 41.6 L Lymphocytes % 37.5 Monocytes % 16.3 H Eosinophils % 3.7 Basophils % 0.9 INR 1.24 H PTT (Actin FS) 33.0 D-Dimer Sodium 134 L Potassium 4.3 Chloride 99 Carbon Dioxide 24 Anion Gap 11 BUN 19 H Creatinine 1.0 Creat Clearance w eGFR 56.18 Random Glucose 72 L Hemoglobin A1c % Calcium 9.4 Magnesium 2.0 Total Bilirubin 0.4 AST 19 ALT 21 Alkaline Phosphatase 73 Creatine Kinase 117 CK-MB (CK-2) Troponin I < 0.02 Total Protein 9.6 H Albumin 3.9 TSH 6.74 H Free T4 1.17 06/01/16 06/01/16 06/01/16 07:58 09:50 10:05 D-Dimer < 200 Free T3 2.1 Opiates Screen Negative Methadone Screen Negative Barbiturate Screen Negative Phencyclidine Screen Negative Ur Amphetamines Screen Negative MDMA (Ecstasy) Screen Negative Benzodiazepines Screen Negative Cocaine Screen Negative U Marijuana (THC) Screen Negative 06/01/16 06/02/16 06/02/16 14:31 00:01 06:10 Sodium 137 Potassium 4.3 Chloride 103 Carbon Dioxide 20 L Anion Gap 14 BUN 12 D Creatinine 0.8 Random Glucose 60 L Calcium 9.1 Creatine Kinase 160 D CK-MB (CK-2) 2.403 Troponin I < 0.02 < 0.02 Hemoglobin A1c % 5.9 Vital Signs (72 hours) 06/01/16 06/01/16 06/01/16 06:35 07:12 10:10 Temperature 98.5 F Pulse Rate 114 H 117 H Pulse Rate [ 112 H Radial] Respiratory 18 18 Rate Blood Pressure 127/91 124/104 Blood Pressure 115/61 [Left Arm] O2 Sat by Pulse 100 100 Oximetry (%) 06/01/16 06/01/16 16:38 18:17 Temperature Pulse Rate Pulse Rate [ 84 86 Radial] Respiratory 18 18 Rate Blood Pressure Blood Pressure 120/90 102/69 [Left Arm] O2 Sat by Pulse 100 100 Oximetry (%) IMAGING: Chest xray: no acute pathology Echo: EF 65.5%. The left ventricular size, thickness and function are normal. the right ventricle is normal in size anf function. There is trace tricuspid regurgitation. HOSPITAL COURSE: Date of Admission:06/01/16 - Date of Discharge: 06/02/16 60 yr old woman with no medical follow-up presents with 2 episodes of lightheadedness, once last week and one prior to ED presentation, found to have tachyarrhythmia in ED admitted to [facility] for further evaluation. Initially she was started on cardizem drip that improved her rate. She was evaluated by cardiology. Her rhythm strips showed sinus rhythm with intermittent episodes of SVT, likley paroxysmal atrial tachycardia without acute ischemic changes, troponin trend for 3 draws were negative for elevation. Her CHADVASC score was 1 based on sex, so no indication for anticoagulation. Echo results summarized above. She was transitioned to po cardizem er 120 mg po daily for rate control. Her D-Dimer was <200 so there was a low suspicion for PE, chest xray was clear, no leucocytosis, so unlikely to be pulmonary infection, no cardiomegaly seen on chest xray either. Her TSH level was elevated to 6.74 with normal T4 and T3, likely from subclinical hypothyroidism. She asymptomatic at this time and was not treated. She will require a repeat TFT in 1-3 months to re-evaluate. She does not have insurance, 1 month supply of cardizem er 120 mg po daily were sent to [facility] and she was provided the number and address of [facility] to get help obtaining insurance. She was recommended to follow-up with a PCP and medical pathologist when she has obtained insurance, preferably before she finishes her medication. Minutes to complete discharge: 38 Discharge Summary Reason For Visit: TACHYCARDIA Current Active Problems Tachycardia (Acute) Condition: Improved - Instructions Diet, Activity, Other Instructions: You have been started on Cardizem ER 120mg 1 tablet daily, it is important to take this medication everyday or you may experience another episode of tachycardia. The prescription has been sent to [facility]([address] [place]). Call you primary care doctor 1 week before you finish the medication for refills. You are being referred to [facility] to help with obtaining a primary care doctor and insurance coverage. You will also need to follow up with a medical pathologist, 's information is included. [facility] phone number: [phone], please call and make an appointment. You will need to have your thyroid hormones rechecked in 8 weeks, speak with your primary care doctor about a prescription for the lab test. If you develop chest pain, trouble breathing, palpitations, experience syncope or any new symptom return to the hospital. Referrals: Abel Elias MD [Staff Physician] - Disposition: HOME - Home Medications Comprehensive Discharge Medication List: Ambulatory Orders Diltiazem HCl [Cardizem Sr] 120 mg NR DAILY #30 cap.er.12h 06/02/16 This patient is new to me today: No Emergency Visit: No Critical Care patient: No - Discharge Referral Referred to [facility] Med P.C.: No
[2016-06-02 18:15] VITALS: BP 150/87; PULSE 80
--- NOTE | 2016-06-03 09:33 | PN ---
Progress Note, Physician - Objective Vital Signs: Vital Signs Temperature 98.5 F 06/01/16 06:35 Pulse Rate 80 06/02/16 18:14 Respiratory Rate 18 06/02/16 18:14 Blood Pressure 150/87 06/02/16 18:14 O2 Sat by Pulse Oximetry (%) 100 06/02/16 18:14 Labs: CBC, BMP 06/02/16 06:10 INR, PTT INR 1.24 (0.82-1.09) H 06/01/16 06:47 Assessment/Plan echo 05/2016: nl lv/rv, no sig valve path a/p: 60 f no sig pmhx here with lightheadedness. presyncope, svt: -ecg, rhythm strips, tele appear to show sr with intermittent episodes of svt, likely PAT -current tracings do not show aflutter or afib so no need for AC at this time ( chadsvasc is 1 based only on female gender so would not be indication for AC regardless) -tsh slightly high, not hyperthyroid -d-dimer low, no suggestion of PE -echo unremarkable -initially on dilt gtt, now on po dilt 30 qid. -overnight tele shows brief a-tach but no long runs as she was having yesterday on presentation. will change to long acting dilt 120 qd for this AM dose and if tele remains benign can dc later this afternoon from cardiac pov. Should have outpt cardio f/u.
== END 2016-06-02 17:19 | disposition home or self-care (01) | DRG 201 ==
LOC: JER 06:15 → JERBED 07:06
PROVIDERS: ADMIT Internal Medicine; ATTEND Internal Medicine
DX: R00.0 Tachycardia, unspecified (principal); R94.6 Abnormal results of thyroid function studies
CPT/HCPCS: 36415; 71010-TC; 80048; 80053; 80307; 82550; 82553; 83036; 83735; 84439; 84443; 84481; 84484; 85025; 85379; 85610; 85730; 93005; 93010; 93306-TC; 99285-25; J1644

== ENCOUNTER 2016-06-15 20:26 | Emergency (ER) | payer OTHER ==
[2016-06-15 20:39] VITALS: BP 136/62; PULSE 84; TEMP 98.3; BMI 25.4
[2016-06-15 21:00] LABS: BASOPHIL 0.4 % (0-2.0); MCH 25.2 pg (25.7-33.7); MCHC 32.7 g/dl (32.0-36.0); MEAN CELL VOLUME 77.1 fl (80-96); MEAN PLT VOLUME 8.2 fl (7.5-11.1); NEUTROPHILS 49.6 % (42.8-82.8); PLATELET COUNT 368 K/MM3 (134-434); RDW 14.5 % (11.6-15.6); WHITE BLOOD COUNT 5.5 K/mm3 (4.0-10.0)
[2016-06-15 21:27] LABS: ALBUMIN 3.5 g/dl (3.4-5.0); ANION GAP 7 (8-16); CALCIUM 9.2 mg/dL (8.5-10.1); CO2 30 mmol/L (21-32); CREATININE 0.8 mg/dL (0.55-1.02); GLUCOSE,RANDOM 98 mg/dL (74-106); SGOT/AST 11 U/L (15-37); SGPT/ALT 17 U/L (12-78)
[2016-06-15 21:29] LABS: ALK PHOS 71 U/L (45-117); BILIRUBIN,TOTAL 0.2 mg/dL (0.2-1.0); TOT PROT 8.9 g/dl (6.4-8.2)
--- NOTE | 2016-06-15 23:02 | PDOC ---
History of Present Illness - General History Source: Patient Exam Limitations: No Limitations - History of Present Illness Initial Comments: 06/15/16 23:38 The patient is a 60 year old female, with a significant past medical history of hypertension and paroxysmal atrial tachycardia, who presents to the emergency department complaining of paresthesias to left toe and tongue for approximately 2 days. The patient reports her symptoms began as pins and needles sensations in her left big toe yesterday. Today she states she feels as if her tongue is stuck to the bottom of her mouth. The patient reports the left side of her body has not been feeling normal. She reports she presented to the ED approximately 2 weeks ago after a syncopal episode, during which she was prescribed diltiazem. The patient denies any chest pain, shortness of breath, palpitations , or diaphoresis. The patient denies any fever, chills, cough, headache, or dizziness. The patient denies any abdominal pain, nausea, vomiting, diarrhea, or constipation. The patient denies any dysuria, hematuria, frequency, or urgency. Allergies: Iodinated contrast media-oral, iodine, and penicillins. Past Surgical History: None reported. Social History: Non-smoker. Denies alcohol or drug use. <Zakia Michelle - Last Filed: 06/16/16 01:24> - General History Source: Patient <UrielJacobo hall - Last Filed: 06/16/16 01:27> - General Chief Complaint: Allergic Reaction Stated Complaint: ALLERGIC REACTION Time Seen by Provider: 06/15/16 20:35 Past History <Zakia Michelle - Last Filed: 06/16/16 01:24> - Past Medical History HTN: Yes - Psycho/Social/Smoking Cessation Hx Anxiety: No Suicidal Ideation: No Smoking History: Never smoked Have you smoked in the past 12 months: No Number of Cigarettes Smoked Daily: 0 Information on smoking cessation initiated: No Hx Alcohol Use: No Drug/Substance Use Hx: No <Jacobo Bustos - Last Filed: 06/16/16 01:27> - Past Medical History Allergies/Adverse Reactions: Allergies Allergy/AdvReac Type Severity Reaction Status Date / Time Iodinated Contrast Media - Allergy Verified 06/15/16 20:35 Oral and iodine Allergy Verified 06/15/16 20:35 Penicillins Allergy Verified 06/15/16 20:35 Home Medications: Ambulatory Orders Diltiazem HCl [Cardizem Sr] 120 mg NR DAILY #30 cap.er.12h 06/02/16 Sulfamethoxazole/Trimethoprim [Bactrim *Ds*] 1 tab PO BID #20 tablet 06/16/16 Review of Systems - Review of Systems Able to Perform ROS?: Yes Comments:: 06/15/16 23:39 CONSTITUTIONAL: Absent: fever, chills, diaphoresis, generalized weakness, malaise, loss of appetite HEENT: Absent: rhinorrhea, nasal congestion, throat pain, throat swelling, difficulty swallowing, mouth swelling, ear pain, eye pain, visual Changes CARDIOVASCULAR: Absent: chest pain, syncope, palpitations, irregular heart rate, lightheadedness , peripheral edema RESPIRATORY: Absent: cough, shortness of breath, dyspnea with exertion, orthopnea, wheezing, stridor, hemoptysis GASTROINTESTINAL: Absent: abdominal pain, abdominal distension, nausea, vomiting, diarrhea, constipation, melena, hematochezia GENITOURINARY: Absent: dysuria, frequency, urgency, hesitancy, hematuria, flank pain, genital pain MUSCULOSKELETAL: Absent: myalgia, arthralgia, joint swelling SKIN: Absent: rash, itching, pallor HEMATOLOGIC/IMMUNOLOGIC: Absent: easy bleeding, easy bruising, lymphadenopathy, frequent infections ENDOCRINE: Absent: unexplained weight gain, unexplained weight loss, heat intolerance, cold intolerance NEUROLOGIC: Present: +paresthesias to the left big toe and tongue, +left sided weakness Absent: headache, dizziness, unsteady gait, seizure, mental status changes, bladder or bowel incontinence PSYCHIATRIC: Absent: anxiety, depression, suicidal or homicidal ideation, hallucinations. <Zakia Michelle - Last Filed: 06/16/16 01:24> *Physical Exam - Vital Signs Last Vital Signs Temp Pulse Resp BP Pulse Ox 98.3 F 84 14 136/62 100 06/15/16 20:36 06/15/16 20:36 06/15/16 20:36 06/15/16 20:36 06/15/16 20:36 - Physical Exam Comments: 06/15/16 23:40 GENERAL: Well developed, well nourished. Awake and alert. No acute distress. HEENT: Normocephalic, atraumatic. PERRLA, EOMI. No conjunctival pallor. Sclera are non- icteric. Moist mucous membranes. Oropharynx is clear. Poor dentition. NECK: Supple. Full ROM. No JVD. Carotid pulses 2+ and symmetric, without bruits. No thyromegaly. No lymphadenopathy. CARDIOVASCULAR: Regular rate and rhythm. No murmurs, rubs, or gallops. Distal pulses are 2+ and symmetric. PULMONARY: No evidence of respiratory distress. Lungs clear to auscultation bilaterally. No wheezing, rales or rhonchi. ABDOMINAL: Soft. Non-tender. Non-distended. No rebound or guarding. No organomegaly. Normoactive bowel sounds. MUSCULOSKELETAL Normal range of motion at all joints. No bony deformities or tenderness. No CVA tenderness. EXTREMITIES: No cyanosis. No clubbing. No edema. No calf tenderness. SKIN: Warm and dry. Normal capillary refill. No rashes. No jaundice. NEUROLOGICAL: Alert, awake, appropriate. Cranial nerves 2-12 intact. No deficits to light touch and temperature in face, upper extremities and lower extremities. No motor deficits in the in face, upper extremities and lower extremities. Normoreflexic in the upper and lower extremities. Normal speech. Toes are down- going bilaterally. Gait is normal without ataxia. PSYCHIATRIC: Cooperative. Good eye contact. Appropriate mood and affect. <Zaika Michelle - Last Filed: 06/16/16 01:24> - Vital Signs Last Vital Signs Temp Pulse Resp BP Pulse Ox 98.3 F 84 14 136/62 100 06/15/16 20:36 06/15/16 20:36 06/15/16 20:36 06/15/16 20:36 06/15/16 20:36 <Jacobo Bustos - Last Filed: 06/16/16 01:27> ED Treatment Course - LABORATORY CBC & Chemistry Diagram: 06/15/16 20:30 06/15/16 20:30 - ADDITIONAL ORDERS Additional order review: Laboratory Results 06/15/16 20:30 Sodium 142 Potassium 3.7 Chloride 105 Carbon Dioxide 30 D Anion Gap 7 L BUN 8 D Creatinine 0.8 Creat Clearance w eGFR > 60 Random Glucose 98 D Calcium 9.2 Magnesium 2.0 Total Bilirubin 0.2 D AST 11 L D ALT 17 Alkaline Phosphatase 71 Total Protein 8.9 H Albumin 3.5 06/15/16 20:30 RBC 4.29 MCV 77.1 L MCHC 32.7 RDW 14.5 MPV 8.2 Neutrophils % 49.6 Lymphocytes % 23.8 D Monocytes % 14.2 H Eosinophils % 12.0 H D Basophils % 0.4 - RADIOLOGY Radiograph Interpretation: 06/16/16 01:24 EXAM: Head CT INTERPRETED BY: Dr. Peña REVIEWED BY: Dr. Bustos IMPRESSION: No acute brain parenchymal abnormality. No hemorrhage, mass or acute territorial infarct. Opacification one left ethmoid air cell. Visualized mastoid air cells clear. <Zakia Michelle - Last Filed: 06/16/16 01:24> - LABORATORY CBC & Chemistry Diagram: 06/15/16 20:30 06/15/16 20:30 - ADDITIONAL ORDERS Additional order review: Laboratory Results 06/15/16 20:30 Sodium 142 Potassium 3.7 Chloride 105 Carbon Dioxide 30 D Anion Gap 7 L BUN 8 D Creatinine 0.8 Creat Clearance w eGFR > 60 Random Glucose 98 D Calcium 9.2 Magnesium 2.0 Total Bilirubin 0.2 D AST 11 L D ALT 17 Alkaline Phosphatase 71 Total Protein 8.9 H Albumin 3.5 06/15/16 20:30 RBC 4.29 MCV 77.1 L MCHC 32.7 RDW 14.5 MPV 8.2 Neutrophils % 49.6 Lymphocytes % 23.8 D Monocytes % 14.2 H Eosinophils % 12.0 H D Basophils % 0.4 <Jacobo Bustos - Last Filed: 06/16/16 01:27> Medical Decision Making - Medical Decision Making 06/16/16 01:27 Dr. Bustos: The scribe's documentation has been prepared under my direction and personally reviewed by me in its entirery. I confirm that the note above accurately reflects all work, treatment, procedures, and medical decision making performed by me. <Jacobo Bustos - Last Filed: 06/16/16 01:27> *DC/Admit/Observation/Transfer - Attestations Scribe Attestion: 06/15/16 23:41 Documentation prepared by Zakia Michelle, acting as medical transcription editor for Jacobo Bustos DO. <Zakia Michelle - Last Filed: 06/16/16 01:24> - Discharge Dispostion Admit: No <Jacobo Bustos - Last Filed: 06/16/16 01:27> Diagnosis at time of Disposition: Mastoiditis Qualifiers: Laterality: left Qualified Code(s): H70.92 - Unspecified mastoiditis, left ear - Discharge Dispostion Disposition: HOME Condition at time of disposition: Stable - Prescriptions Prescriptions: Sulfamethoxazole/Trimethoprim [Bactrim *Ds*] 1 tab PO BID #20 tablet - Patient Instructions Printed Discharge Instructions: DI for Mastoiditis-Adult
[2016-06-16] MEDS ORDERED: SULFAMETHOXAZOLE/TRIMETHOPRIM 800MG/160MG D.S. TABLET PO ONE (01:26)
[2016-06-16] MEDS ORDERED: SULFAMETHOXAZOLE/TRIMETHOPRIM 800MG/160MG D.S. TABLET ONE (01:28)
== END 2016-06-16 01:36 | disposition home or self-care (01) ==
LOC: JER 20:26 → JERFT 20:26 → JER 06-16 01:36
DX: H70.92 Unspecified mastoiditis, left ear (principal); I10 Essential (primary) hypertension; I47.1 Supraventricular tachycardia
CPT/HCPCS: 36415; 70450-TC; 80053; 83735; 85025; 99282-25